=== PATIENT | female | born 1960 | race Caucasian/White ===

== ENCOUNTER 2019-07-19 09:33 | Outpatient (CLI) | payer OTHER, SELFPAY ==
--- NOTE | ~2019-07-19 | MM_ITS ---
EXAMINATION: MM screening [facility] BI w [place] HISTORY: Screening mammogram TECHNIQUE: Craniocaudal and mediolateral oblique 3-D tomosynthesis images were obtained and synthetic 2-D images were generated. CAD analysis was submitted and interpreted. COMPARISON: 04/09/2018, 01/30/2017, 01/20/2016 BREAST PARENCHYMAL COMPOSITION: There are scattered areas of fibroglandular density. FINDINGS: There is no evidence of suspicious mass, calcification, or architectural distortion to sugg est malignancy in either breast. There has been no suspicious interval change. IMPRESSION: 1. No mammographic evidence of malignancy. 2. Recommend routine screening mammography in one year. BI-RADS Category 1: Negative Reviewed, dictated and finalized at location A. GER CLIENT SUPPORT
== END 2019-07-19 09:34 | disposition home or self-care (01) ==
LOC: ANHIMG 09:35
PROVIDERS: Visit Provider Obstetrics & Gynecology
DX: Z12.31 Encounter for screening mammogram for malignant neoplasm of breast (principal)
CPT/HCPCS: 77063; 77067

== ENCOUNTER 2020-07-21 08:26 | Outpatient (CLI) | payer OTHER, SELFPAY ==
--- NOTE | ~2020-07-21 | MM_ITS ---
EXAMINATION: MM screening [facility] [place] HISTORY: Screening TECHNIQUE: Craniocaudal and mediolateral oblique 3-D tomosynthesis images were obtained and synthetic 2-D images were generated. CAD analysis was submitted and interpreted. COMPARISON: Comparison to multiple prior studies sequentially, with oldest reviewed study dated 12/16. BREAST PARENCHYMAL COMPOSITION: There are scattered areas of fibroglandular density. FINDINGS: There is no evidence of suspicious mass, calcification, or architectural distortion to sugg est malignancy in either breast. There has been no suspicious interval change. IMPRESSION: 1. No mammographic evidence of malignancy. 2. Recommend routine screening mammography in one year. BI-RADS Category 1: Negative Reviewed, dictated and finalized at location A. COMMUNICATIONS MANAGER
== END 2020-07-21 08:27 | disposition home or self-care (01) ==
LOC: ANHIMG 08:32
PROVIDERS: Visit Provider Obstetrics & Gynecology
DX: Z12.31 Encounter for screening mammogram for malignant neoplasm of breast (principal)
CPT/HCPCS: 77063; 77067

== ENCOUNTER 2021-08-24 07:48 | Outpatient (CLI) | payer OTHER, SELFPAY ==
--- NOTE | ~2021-08-24 | MM_ITS ---
EXAMINATION: MM screening [facility] [place] HISTORY: Screening TECHNIQUE: Craniocaudal and mediolateral oblique 3-D tomosynthesis images were obtained and synthetic 2-D images were generated. CAD analysis was submitted and interpreted. COMPARISON: Comparison to multiple prior studies sequentially, with oldest reviewed study dated 12/29. BREAST PARENCHYMAL COMPOSITION: The breasts are heterogeneously dense, which may obscure small masses . FINDINGS: There is no evidence of suspicious mass, calcification, or architectural distortion to sugg est malignancy in either breast. There has been no suspicious interval change. IMPRESSION: 1. No mammographic evidence of malignancy. 2. Recommend routine screening mammography in one year. BI-RADS Category 1: Negative Reviewed, dictated and finalized at location A.
== END 2021-08-24 07:49 | disposition home or self-care (01) ==
LOC: ANHIMG 07:50
PROVIDERS: Visit Provider Obstetrics & Gynecology
DX: Z12.31 Encounter for screening mammogram for malignant neoplasm of breast (principal)
CPT/HCPCS: 77063; 77067

== ENCOUNTER 2022-08-26 08:00 | Outpatient (CLI) | payer OTHER, SELFPAY ==
--- NOTE | ~2022-08-26 | MM_ITS ---
EXAMINATION: MM screening [facility] [place] HISTORY: Screening TECHNIQUE: Craniocaudal and mediolateral oblique 3-D tomosynthesis images were obtained and synthetic 2-D images were generated. CAD analysis was submitted and interpreted. COMPARISON: Comparison to multiple prior studies sequentially, with oldest reviewed study dated 08/2015. BREAST PARENCHYMAL COMPOSITION: There are scattered areas of fibroglandular density. FINDINGS: There is no evidence of suspicious mass, calcification, or architectural distortion to sugg est malignancy in either breast. There has been no suspicious interval change. IMPRESSION: 1. No mammographic evidence of malignancy. 2. Recommend routine screening mammography in one year. BI-RADS Category 1: Negative Reviewed, dictated and finalized at location A.
== END 2022-08-26 08:01 | disposition home or self-care (01) ==
PROVIDERS: Visit Provider Obstetrics & Gynecology
DX: Z12.31 Encounter for screening mammogram for malignant neoplasm of breast (principal)
CPT/HCPCS: 77063; 77067

== ENCOUNTER 2023-09-11 15:50 | Outpatient (CLI) | payer OTHER, SELFPAY ==
--- NOTE | ~2023-09-11 | MM_ITS ---
EXAMINATION: MM screening [facility] BI w [place] HISTORY: Screening TECHNIQUE: Craniocaudal and mediolateral oblique 3-D tomosynthesis images were obtained and synthetic 2-D images were generated. CAD analysis was submitted and interpreted. COMPARISON: Comparison to multiple prior studies sequentially, with oldest reviewed study dated 01/30. BREAST PARENCHYMAL COMPOSITION: Not dense: There are scattered areas of fibroglandular density. FINDINGS: There is no evidence of suspicious mass, calcification, or architectural distortion to sugg est malignancy in either breast. There has been no suspicious interval change. IMPRESSION: 1. No mammographic evidence of malignancy. 2. Recommend routine screening mammography in one year. BI-RADS Category 1: Negative Reviewed, dictated and finalized at location A.
== END 2023-09-11 15:51 | disposition home or self-care (01) ==
LOC: ANHIMG 15:51
PROVIDERS: Visit Provider Obstetrics & Gynecology
DX: Z12.31 Encounter for screening mammogram for malignant neoplasm of breast (principal)
CPT/HCPCS: 77063; 77067

== ENCOUNTER 2023-09-19 09:10 | Outpatient (CLI) | payer OTHER, SELFPAY ==
--- NOTE | ~2023-09-19 | US_ITS ---
EXAMINATION: US thyroid DATE: 09/19/2023 09:20 INDICATION: Nontoxic goiter TECHNIQUE: Multiple ultrasound images of the thyroid were obtained. COMPARISON: None. FINDINGS: The right thyroid lobe measures 4.6 x 2.3 x 2.1 cm. The left thyroid lobe measures 2.9 x 0.8 x 1.0 c m. There are couple nodules in the right thyroid lobe. Both are solid, wider than tall with lobular margins, iso to slightly hyperechoic relative to the surrounding thyroid and without echogenic foci ( TI-RADS 4, moderately suspicious , FNA if >=1.5 cm, annual followup is >=1 cm). The larger measures 1 .7 cm and the smaller 1.5 cm . There is heterogeneous decreased echogenicity with increased vascular flow throughout the remainder of the thyroid. IMPRESSION: 1. Couple TI RADS 4 right thyroid nodules. Recommend ultrasound-guided biopsy of the larger 1.7 cm no dule. Reviewed, dictated and finalized at location A. IMPRESSION: 1. Couple TI RADS 4 right thyroid nodules. Recommend ultrasound-guided biopsy o f the larger 1.7 cm nodule.
== END 2023-09-19 09:11 ==
PROVIDERS: Visit Provider Otolaryngology
DX: E03.9 Hypothyroidism, unspecified (principal); K21.9 Gastro-esophageal reflux disease without esophagitis; E04.2 Nontoxic multinodular goiter
CPT/HCPCS: 76536

== ENCOUNTER 2023-09-25 12:11 | Outpatient (CLI) | payer OTHER, SELFPAY ==
--- NOTE | ~2023-09-25 | US_ITS ---
EXAMINATION: US FNA w image guidance DATE: 09/25/2023 13:30 INDICATION: Thyroid nodule TECHNIQUE: A time-out was performed to verify the patient's name, date of , and procedure to be performed . The procedure and its benefits and risks were discussed with the patient. Risks specifically discus sed included bleeding and infection. The patient understood the risks and agreed to proceed. The neck was prepped and draped in the usual sterile manner. 3 mL 1% lidocaine was used for local anesthesia . 6 passes were made with a 25G needle into the lesion. Appropriate needle location was documented with continuous sonographic guidance. A sterile bandage was applied. There were no immediate compli cations. FINDINGS: Grayscale ultrasound images demonstrate biopsy needles advanced into the more cephalad of a pair of 1 .4 cm TI RADS 4 nodules. The biopsied nodules the mid thyroid lobe and the more caudal nodule at the inferior thyroid. Of note on cine imaging there are . To be some contiguity between the 2 nodules sug gesting this may represent a single 3.0 cm long lobular TI RADS 4 nodule. IMPRESSION: 1. Successful ultrasound-guided fine needle aspiration of a 1.4 cm TI RADS 4 nodule in the mid right thyroid which may represent a component of a single larger right thyroid mass comprising the identic al size and appearing nodule at the inferior right thyroid which was not biopsied. Reviewed, dictated and finalized at location A. IMPRESSION: 1. Successful ultrasound-guided fine needle aspiration of a 1.4 cm TI RADS 4 n odule in the mid right thyroid which may represent a component of a single larg er right thyroid mass comprising the identical size and appearing nodule at the inferior right thyroid which was not biopsied.
== END 2023-09-25 12:12 | disposition home or self-care (01) ==
PROVIDERS: Visit Provider Otolaryngology
DX: E07.9 Disorder of thyroid, unspecified (principal)
CPT/HCPCS: 10005; 88172; 88173; 88305

== ENCOUNTER 2023-12-29 11:51 | Day surgery (SDC) | payer OTHER, SELFPAY ==
[2023-12-18 08:34] VITALS: BMI 22.3
[2023-12-18 14:38] VITALS: BMI 22.5
--- NOTE | 2023-12-29 09:10 | PM.HPGS ---
History of Present Illness History of Present Illness Consent: Risks, benefits, and alternatives have been discussed and questions answered. Patient agrees to proceed with procedure. Chief complaint: Gerd w/o Esophagitis, Dyskinesia of Esophagus Narrative: Luna Reilly is a 63 year old female who's chief complaint is tightness upper esophageal sphincter with mild pain and frequent throat clearing. This patient has taking the famotidine 40 mg q.a.m. on empty stomach for the past 2 months and she says on occasion she will have good improvement but the frequent throat clearing and pain and tightness at the upper esophageal sphincter area continue to bother her almost daily. She is concerned that she might have a mass in her esophagus or throat and she is concerned that the frequent throat clearing would damage her vocal cords. Again, she had tried the omeprazole, proton pump inhibitor. and could not tolerate this because of stomach cramping and diarrhea. she denies dysphagia. She states that she simply always feels the need to clear her throat. Review of Systems Review of Systems: All systems reviewed & are unremarkable except as noted in HPI and below PMFSH Past Medical History Medical History Thyroid condition Family History Family History Father Heart disease Cerebrovascular accident Mother Thyroid disorder Multiple sclerosis Social History Social History Social History: Caffeine-soda Smoking status: Never smoker Alcohol intake: never Substance use: never Substance use type: does not use Do You Feel Safe in your Home?: Yes Lack of Transportation: No Lack of Food: Never True Current Housing: I Have Housing Concerned About Future Housing: No Difficulty Paying Gas/Electric Bills: No Difficulty Paying for Meds: No Currently Unemployed: No Education: High School Diploma/GED Difficulty w/ Childcare or Family Care: No Living arrangements: with family Spiritual care concerns: No Meds Home Medications and Allergies Home Medications Medication Instructions Recorded Confirmed Type levothyroxine 88 mcg capsule 88 mcg PO DAILY 09/18/23 12/29/23 History simvastatin 40 mg tablet 40 mg PO DAILY 09/18/23 12/29/23 History famotidine 20 mg tablet 40 mg PO DAILY 12/18/23 12/29/23 History Allergies Allergy/AdvReac Type Severity Reaction Status Date / Time morphine Allergy Severe ITCHING Verified 12/29/23 13:10 latex Allergy Unknown RASH Verified 12/29/23 13:10 Exam Const: General: alert Orientation/consciousness: patient oriented x3 Resp: Auscultation: clear to auscultation bilaterally Cardio: Rhythm: regular rhythm GI: GI Palp: Yes Soft to palpation and No Tenderness to palpation present (GI) Neuro: General: patient oriented x3 Assessment and Plan Assessment and plan (1) Esophageal spasm: Code(s): K22.4 - Dyskinesia of esophagus Status: Acute Assessment and Plan: EGD with possible biopsy or dilatation or cautery.
[2023-12-29 13:11] VITALS: BP 112/75; PULSE 59; RESP 16; TEMP 36.7; O2SAT 100
[2023-12-29] MEDS: LACTATED RINGERS 1,000 ML 150 ML IV CONT (13:16)
--- NOTE | 2023-12-29 13:30 | P.PNAN_ITS ---
Anes - Initial Pre Proc Eval Procedure: Operation Date: 12/29/23 14:30 Proposed Procedures p Esophagogastroduodenoscopy - Donald Yi MD Date/Time: 12/29/23 13:30 Surgeon: Donald Yi MD Pre Op Diagnosis: Gerd w/o Esophagitis, Dyskinesia of Esophagus Patient Data Age: 63 Gender: F Height: 1.65 m Weight: 60.5 kg Last Vital Signs Temp 36.7 C 12/29/23 13:11 Pulse 59 L 12/29/23 13:11 Resp 16 12/29/23 13:11 BP 112/75 12/29/23 13:11 Pulse Ox 100 12/29/23 13:11 O2 Del Method Room Air 12/29/23 13:11 Allergies Allergy/AdvReac Type Severity Reaction Status Date / Time morphine Allergy Severe ITCHING Verified 12/29/23 13:10 latex Allergy Unknown RASH Verified 12/29/23 13:10 Home Medications Medication Instructions Recorded Confirmed Type levothyroxine 88 mcg capsule 88 mcg PO DAILY 09/18/23 12/29/23 History simvastatin 40 mg tablet 40 mg PO DAILY 09/18/23 12/29/23 History famotidine 20 mg tablet 40 mg PO DAILY 12/18/23 12/29/23 History Patient hx anesthesia problems: none Family hx anesthesia problems: none Results Review: All pre-operative results and documents have been reviewed as part of the pre- operative evaluation. [facility]LY [facility] Past Medical History Medical History (Updated 12/29/23 @ 13:30 by Renato Nettles MD) Hyperlipidemia Thyroid condition Surgical History Surgical History (Updated 12/29/23 @ 13:31 by Renato Nettles MD) H/O: hysterectomy History of appendectomy Family History Family History Father Heart disease Cerebrovascular accident Mother Thyroid disorder Multiple sclerosis Social History Social History Social History: Caffeine-soda Smoking status: Never smoker Alcohol intake: never Substance use: never Substance use type: does not use Do You Feel Safe in your Home?: Yes Lack of Transportation: No Lack of Food: Never True Current Housing: I Have Housing Concerned About Future Housing: No Difficulty Paying Gas/Electric Bills: No Difficulty Paying for Meds: No Currently Unemployed: No Education: High School Diploma/GED Difficulty w/ Childcare or Family Care: No Living arrangements: with family Spiritual care concerns: No Anes - Eval Final PreProcedure Day of Procedure 12/29/23 13:30 Patient weight: normal Heart: regular rate and rhythm Lungs: clear to auscultation Airway: Mallampati scale class II Neurological: alert and oriented Last oral intake: >/= 8 hours ASA classification: II Emergent: no Anesthetic plan: proceed Anesthesia type and monitoring: general GIVS and standard monitoring Results Review: All pre-operative results and documents have been reviewed as part of the pre- operative evaluation. Informed Consent: The patient's anesthetic plan and its attendant risks and benefits were discussed with the patient/family/POA. Questions were solicited and answers provided to the satisfaction of the patient/family/POA.
[2023-12-29 13:44] VITALS: BP 102/56; PULSE 60; RESP 16; O2SAT 100
--- NOTE | 2023-12-29 13:52 | WPDANESPN ---
Anes - Prog Note Post-Op Date/Time: 12/29/23 13:52 Cardiovascular status: normal Respiratory status: normal Airway patency: baseline Mental status: baseline Vital Signs: Last Vital Signs Temp 36.7 C 12/29/23 13:11 Pulse 59 L 12/29/23 13:11 Resp 16 12/29/23 13:11 BP 112/75 12/29/23 13:11 Pulse Ox 100 12/29/23 13:11 O2 Del Method Room Air 12/29/23 13:11 Pain Score (VAS): 0/10 I/O: Intake & Output 12/28/23 12/29/23 12/29/23 23:59 07:59 15:59 Intake Total 300 Balance 300 Patient Feedback: Patient satisfied with anesthetic care.
[2023-12-29 13:54] VITALS: BP 99/60; PULSE 59; O2SAT 99
[2023-12-29 14:04] VITALS: BP 105/64; O2SAT 100
== END 2023-12-29 14:25 | disposition home or self-care (01) ==
PROVIDERS: Visit Provider Internal Medicine Gastroenterology
PROC: 0DJ08ZZ Inspection of Upper Intestinal Tract, Via Natural or Artificial Opening Endoscopic (ICD-10-PCS; CPT 43235; principal; 2023-12-29 14:30)
DX: K21.9 Gastro-esophageal reflux disease without esophagitis (principal); F45.8 Other somatoform disorders
CPT/HCPCS: 43239

== ENCOUNTER 2024-09-07 10:55 | Outpatient (CLI) | payer OTHER, SELFPAY ==
--- NOTE | ~2024-09-07 | US_ITS ---
EXAMINATION: US FNA w image guidance DATE: 09/07/2024 12:28 INDICATION: Thyroid nodule with suspicious prior fine-needle aspiration. TECHNIQUE: A time-out was performed to verify the patient's name, date of , and procedure to be performed . The procedure and its benefits and risks were discussed with the patient. Risks specifically discus sed included bleeding and infection. The patient understood the risks and agreed to proceed. The neck was prepped and draped in the usual sterile manner. 3 mL 1% lidocaine was used for local anesthesia . 8 passes were made with a 25G needle into the lesion. Appropriate needle location was documented with continuous sonographic guidance. A sterile bandage was applied. There were no immediate compli cations. FINDINGS: Grayscale ultrasound images demonstrate biopsy needles advanced into the cephalad and caudal componen ts of a bilobed solid isoechoic nodule with lobular margins (TI-RADS 4, moderately suspicious) in the right thyroid lobe. IMPRESSION: 1. Successful ultrasound-guided fine needle aspiration of the TI-RADS 4 right thyroid nodule of conc carlos. Reviewed, dictated and finalized at location A. IMPRESSION: 1. Successful ultrasound-guided fine needle aspiration of the TI-RADS 4 right thyroid nodule of concern.
--- OUTSIDE RECORDS SUMMARY | 2024-09-07 12:31 | XMS_ITS | Clinical Summary ---
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 Gender Identity Not on file Sexual Orientation Not on file Plan of Treatment Health Maintenance Due Date Last Done Comments DTAP/TDAP/TD VACCINES (1 - Tdap) 08/17/1979 HPV/Cotest (21-29) 1981 CERVICAL CANCER SCREENING 1990 HPV/Cotest (30-65) 1990 PAP SMEAR 1990 BREAST CANCER SCREENING 2000 COLORECTAL SCREENING 2005 Colorectal Cancer Screening 2005 FIT-DNA Q 3 years 2005 FIT/FOBT Q 1 year 2005 Flex Sig/CT Colonography Q 5 years 2005 ZOSTER VACCINE (2 of 2) 05/28/2022 04/02/2022 INFLUENZA VACCINE (#1) 2024 RSV VACCINE (60+ or ) (1 - 1-dose 75+ series) 08/17/2035 PNEUMOCOCCAL VACCINE 0-49 YEARS Aged Out No longer eligible based on patient's age to complete this topic Insurance QuVIS [id number]
--- OUTSIDE RECORDS SUMMARY | 2024-09-07 12:31 | XMS_ITS | Data Portability ---
Author Organization [facility], [address] [facility] ([place]) Address [address] 4th [place] [address] Care Team Providers Care Compliance Associate Name Role Phone MACARIO FISH Primary Care Provider [phone] Assessment Encounter Date Assessment Date Assessment LastModified by Organization Details LastModified Time 11/27/2023 11/27/2023 I discussed with Luna that there is no sign of infection of her toe. This blister is likely due to an injury. I recommend to keep the skin intact if she can. If blister does pop, cover with Neosporin and bandage. If it does not improve, pt will notify office. Pt verbalizes understanding of treatment plan. Not available 11/27/2023 17:14:06 09/02/2024 09/02/2024 Pt [facility] Simvastatin refilled x 90 days to last until after labs are complete then will be refilled x 1 year. Pt verbalizes understanding of treatment plan. Not available 09/02/2024 10:04:43 Plan of Treatment Reminders Order Date Submit Date Provider Last Modified By Organization Details Last Modified Time Details Appointments None recorded. Lab wet mount, vaginal 2023 024 [id number] 6 [facility], [address] [place] [address], [id number], 4 11:48:08 TSH, ultra-sensi tive, serum 2023 024 abillingt on2 [facility], [address] [place] [address], [id number], 11:27:04 CMP, serum or plasma 2023 024 rubént on2 [facility], [address] [place] [address], [id number], 11:26:41 Referral None recorded. Procedures None recorded. Surgeries None recorded. Imaging None recorded. Medication Orders simvastatin 40 mg tablet 2024 025 [facility] ([facility]), [address], [address], [place], [place], [id number], 09:59:42 Patient TargetsNo targets recorded. Patient Instructions Encounter Date Encounter Id Patient Instructions Last Modified By Organization Details Last Modified Time 05/24/2024 [id number] Follow-up as scheduled, PRN in interim [email or web address] Not available 05/24/2024 12:31:36 Reason for Referral None Reported. Results Created Date Observation Date Name Description Value Unit Range Abnormal Flag Note LastModifiedBy Organization Detail LastModifiedTime 05/27/2005/28/2024 carol da sp + gardn erell a vagin foreign + trich omona s vagin foreign DNA panel , probe , vagin al fluid wet prep-DNA probe Not Available [facility] [address] [place] [address], [id number], 05/28/2024 08:35:17 05/27/20 24 05/28/2024 carol da sp + gardn erell a vagin foreign + trich omona s vagin foreign DNA panel , probe , vagin al fluid bacterial vaginosis NEGATI VE negati ve Not Available [facility] [address] [place] [address], [id number], 05/28/2024 08:35:17 05/27/20 24 05/28/2024 carol da sp + gardn erell a vagin foreign + trich omona s vagin foreign DNA panel , probe , vagin al fluid katlyn krusei NEGATI VE negati ve A Carol da sp. (C. albic ans, C. tropi calis , C. parap humberto is, C. dubli niens is) resul t can be posit sarah due to one or multi ple Carol da speci es. This is a PCR assay that detec ts DNA targe ts to aid in the diagn osis of vagin al infec tions in women . A posit sarah resul t does not neces saril y indic ate the prese nce of viabl e organ isms and there fore can not be used to asses s thera peuti c succe ss. Not Available [facility] [address] [place] [address], [id number], 05/28/2024 08:35:17 05/27/20 24 05/28/2024 carol da sp + gardn erell a vagin foreign + trich omona s vagin foreign DNA panel , probe , vagin al fluid trichomonas NEGATI VE negati ve Not Available [facility] [address] [place] [address], [id number], 05/28/2024 08:35:17 05/27/20 24 05/28/2024 carol da sp + gardn erell a vagin foreign + trich omona s vagin foreign DNA panel , probe , vagin al fluid katlyn sp. NEGATI VE negati ve Not Available [facility] [address] [place] [address], [id number], 05/28/2024 08:35:17 05/27/20 24 05/28/2024 carol da sp + gardn erell a vagin foreign + trich omona s vagin foreign DNA panel , probe , vagin al fluid katlyn glabrata NEGATI VE negati ve Not Available [facility] [address] [place] [address], [id number], 05/28/2024 08:35:17 06/25/19 25 06/25/2024 TSH, ultra -sens itive , serum TSH3 1.968 uIU/m L .340-5 .600 Not Available [facility] [address] [place] [address], [id number], 06/25/2024 16:24:50 06/25/19 25 06/25/2024 CMP, serum or plasm a comp. met. panel Not Available [facility] [address] [place] [address], [id number], 06/25/2024 16:29:03 06/25/1906/25/2024 CMP, serum or plasm a sodium 138 mmol/ L 136-14 6 Not Available [facility] [address] [place] [address], [id number], 06/25/2024 16:29:03 06/25/1906/25/2024 CMP, serum or plasm a potassium 4.2 mmol/ L 3.5-5. 1 Not Available [facility] [address] [place] [address], [id number], 06/25/2024 16:29:03 06/25/19 25 06/25/2024 CMP, serum or plasm a chloride 102 mmol/ L 98-110 Not Available [facility] [address] [place] [address], [id number], 06/25/2024 16:29:03 06/25/1906/25/2024 CMP, serum or plasm a CO2 30 mEq/L 20-32 Not Available [facility] [address] [place] [address], 80189, 06/25/2024 16:29:03 06/25/1906/25/2024 CMP, serum or plasm a anion gap 10 mmol/ L 10-22 Not Available [facility] [address] [place] [address], 936[address], 06/25/2024 16:29:03 06/25/1906/25/2024 CMP, serum or plasm a glucose 90 mg/dL 70-100 Not Available [facility] [address] [place] [address], [id number], 06/25/2024 16:29:03 06/25/19 25 06/25/2024 CMP, serum or plasm a calcium 9.6 mg/dL 8.4-10 .4 Not Available [facility] [address] [place] [address], [id number], 06/25/2024 16:29:03 06/25/19 25 06/25/2024 CMP, serum or plasm a total protein 6.9 g/dL 6.4-8. 3 Not Available [facility] [address] [place] [address], [id number], 06/25/2024 16:29:03 06/25/1906/25/2024 CMP, serum or plasm a albumin 4.3 g/dL 3.5-5. 3 Not Available [facility] [address] [place] [address], [id number], 06/25/2024 16:29:03 06/25/19 25 06/25/2024 CMP, serum or plasm a ALP 74 U/L 44 - 127 Not Available [facility] [address] [place] [address], [id number], 06/25/2024 16:29:03 06/25/19 25 06/25/2024 CMP, serum or plasm a AST (SGOT) 30 U/L 10-40 Not Available [facility] [address] [place] [address], [id number], 06/25/2024 16:29:03 06/25/1906/25/2024 CMP, serum or plasm a total bilirubin 0.6 mg/dL 0.2-1. 0 Not Available [facility] [address] [place] [address], [id number], 06/25/2024 16:29:03 06/25/19 25 06/25/2024 CMP, serum or plasm a ALT (SGPT) 29 U/L 8-35 Not Available [facility] [address] [place] [address], [id number], 06/25/2024 16:29:03 06/25/19 25 06/25/2024 CMP, serum or plasm a BUN 22 mg/dL 7-21 high Not Available [facility] [address] [place] [address], 10919, 06/25/2024 16:29:03 06/25/19 25 06/25/2024 CMP, serum or plasm a creatinine 1.2 mg/dL 0.7-1. 3 Not Available [facility] [address] [place] [address], 09688, 06/25/2024 16:29:03 06/25/19 25 06/25/2024 CMP, serum or plasm a CKD-epi GFR 51 low eGFR was calcu lated using the 2020 CKD-E PI equat ion. (Academic Assistant phong Kidne y Disea se has an eGFR less than 60 mL/mi n/1.7 3mm for a perio d of three month s or more. ) This calcu latio n has not been valid ated for patie nt ages <18 or >90 years old. Not Available [facility] [address] [place] [address], [id number], 06/25/2024 16:29:03 01/15/20 24 06/17/2022 imagi ng/di agnos tic resul t No observ ation record ed. Not Available 01/15/2024 01:45:32 01/15/20 24 09/11/2022 imagi ng/di agnos tic resul t No observ ation record ed. Not Available 01/15/2024 01:45:36 01/15/2009/11/2022 imagi ng/di agnos tic resul t No observ ation record ed. Not Available 01/15/2024 01:45:40 01/15/2009/11/2022 imagi ng/di agnos tic resul t No observ ation record ed. Not Available 01/15/2024 01:45:41 01/15/2009/19/2022 imagi ng/di agnos tic resul t No observ ation record ed. Not Available 01/15/2024 01:45:49 02/17/2009/12/2022 imagi ng/di agnos tic resul t No observ ation record ed. Not Available 02/17/2024 01:15:54 03/30/2009/16/2023 imagi ng/di agnos tic resul t No observ ation record ed. [email or web address] Not Available 23:05:55 03/30/2009/16/2023 imagi ng/di agnos tic resul t No observ ation record ed. [email or web address] Not Available 23:05:56 03/30/2009/19/2023 imagi ng/di agnos tic resul t No observ ation record ed. [email or web address] Not Available 23:06:02 03/30/2009/19/2023 imagi ng/di agnos tic resul t No observ ation record ed. [email or web address] Not Available 23:06:03 03/30/2009/24/2023 imagi ng/di agnos tic resul t No observ ation record ed. [email or web address] Not Available 23:06:05 03/30/2009/24/2023 imagi ng/di agnos tic resul t No observ ation record ed. [email or web address] Not Available 23:06:05 Result Notes None recorded. Problems Name Problem SNOMED Code Status Onset Date Resolution Date Notes Provider Name and Address Organization Details Recorded Time Gastroes ophageal reflux disease 115780764 Active 202312/29/23 EGD at Ralf Crowley PA-C [address] [facility] [address], [place], [address], [facility] 4 17:49:11 Chronic kidney disease stage 3A 366109292 Active baseline creatini ne 1.0-1.2 since (eGFR 50's). Uncertai n etiology but notably followin g acute Covid infxn, consider referral to Nephrolo gy if worsenin g. Plan avoid nephroto xic agents as able. - note EGD w/ no e/o bleed (p BUN 20's). Macario Fish MD [address] [facility] [address], [place], [address], [facility] 5 08:22:58 Mitral valve regurgit ation 95829076 Active mild-mod erate on echo (on eval of prior seen pericard ial effusion ) w/ nmL overall LV motion and EF 55-60%. f/b Cardiolo gy. Consuelo Guan [facility] 4 20:26:54 Chronic sinusiti s 21282124 Active 07/11/23 Trial of Singulai r added Consuelo Guan [facility] 4 20:20:33 Screenin g for malignan t neoplasm of colon Active nmL colonosc opy . repeat due 10yrs Macario Fish MD [address] [facility], [place], [address], [facility] 5 08:16:48 Chronic constipa tion 645732115 Active Trial of Linzess started Consuelo Guan [facility] 4 20:21:51 History of SARS-CoV -2 24859397291 4275168 Active + home test 12/20/21 Consuelo Guan [facility] 4 20:22:31 Hyperlip idemia 58842293 Active Statin tx in kasiahoo ashly SCOTT Coronary calcium score low risk . Switched to rosuvast atin (from simvasta tin) p ODV600. - LDL 81 on Macario Fish MD [address], [place], [address], [facility] 5 08:23:26 Hypothyr oidism 62225342 Active Tx Levothyr oxine. TSH 1.97 on . Macario Fish MD [address] [facility], [place], [address], [facility] 5 08:23:49 Left lower quadrant pain 580565727 Completed 09/16/18 on & off for years. No LLQ findings on CT abd/pelv is. Spontane ously resolved (at check-in ). Macario Fish MD [address] [facility], [place], [address], [facility] 5 08:24:35 Multiple nodules of lung 198341256 Completed incident ally noted in lower lung ramirez on CT abd. Calcifie d granulom as on chest CT, no repeat imaging indicate d per rad's in 2019. Macario Fish MD [address] [facility], [place], [address], [facility] 5 08:25:17 Palpitat ions 53913671 Active Holter rare PACs and PVCs. As of 06/21/22 no further episodes during phone check in. Macario Fish MD [address] [facility], [place], [address], [facility] 5 08:28:21 Pericard ial effusion 467184776 Active mild, incident al on CT CalciumS coring . Resolved on echo . Macario Fish MD [address] [facility], [place], [address], [facility] 5 08:28:38 Cyst of kidney 840481486 Active Left on CT. s/p eval by Dr. Hackett, recommen ded f/u CT annually for a few years : stable thru . Right cyst stable . - urine cytology neg 07/2019. Macario Fish MD [address] , [place], [address], [facility] 5 08:31:12 Thyroid nodule 721212765 Active Bx R. thyroid nodule: suspici ous for malignan cy follicul ar cells with atypia, nucleoli & possible nuclear grooves. ENT (Dr. Escobar) planning repeat biopsy . Macario Fish MD [address] , [place], [address], [facility] 5 15:25:18 Screenin g mammogra phy Active Done through [facility] (Dr. Teresa correa) at [facility] ): nmL 07/21/20. [facility] 4 20:31:44 Vesicle of skin 222667137 Completed 11/27/2023 Blister of right great toe . Macario Fish MD [address] , [place], [address], [facility] 5 08:32:19 Problem Notes None recorded. Procedures Surgical History Date Name Laterality Status Provider Name and Address Organization Details Recorded Time [place] [facility] 20:17:55 [place] [facility] [place] 20:18:40 [place] [facility] 20:18:56 Imaging Results Imaging Date Name Status LastModified by Organiz ation Details LastModified Time 06/17/2022 imaging/diag nostic result completed j Information not available 01/15/2024 01:45:32 09/11/2022 imaging/diag nostic result completed j Information not available 01/15/2024 01:45:36 09/11/2022 imaging/diag nostic result completed j Information not available 01/15/2024 01:45:40 09/11/2022 imaging/diag nostic result completed Information not available 01/15/2024 01:45:41 09/19/2022 imaging/diag nostic result completed Information not available 01/15/2024 01:45:49 09/12/2022 imaging/diag nostic result completed Information not available 02/17/2024 01:15:54 09/16/2023 imaging/diag nostic result completed Information not available 03/30/2024 23:05:55 09/16/2023 imaging/diag nostic result completed Information not available 03/30/2024 23:05:56 09/19/2023 imaging/diag nostic result completed Information not available 03/30/2024 23:06:02 09/19/2023 imaging/diag nostic result completed Information not available 03/30/2024 23:06:03 09/24/2023 imaging/diag nostic result completed Information not available 03/30/2024 23:06:05 09/24/2023 imaging/diag nostic result completed Information not available 03/30/2024 23:06:05 Procedure Notes None recorded. Medical Equipment None Reported. Allergies Allergen ID Allergen Name Allergen Category Reaction Reaction Severity Criticality Documentation Date Start Date Code Code System Note Provider Name and Address Organization Details Recorded Time 2559877 rosuvasta tin medicatio n myalgias (muscle pain) Not available Not available 11/25/2023 44176 2 RxNorm Not Available Not Available Not Available 766761 morphine sulfate medicatio n rash Not available Not available 06/30/20232017 32586 RxNorm React ion: Rash; Itchi ng; Not Available Not Available Not Available Medications Name Sig Start Date Stop Date Status Note LastModified by Organization Details LastModified Time azithromy tal 250 mg tablet TAKE 2 TABLETS ON DAY 1 THEN TAKE 1 TABLET A DAY FOR 4 DAYS. 06/25 /2024 completed Not Available Not Available Not Available omeprazol e 40 mg capsule,d elayed release TAKE 1 TABLET BY MOUTH EVERY DAY 11/24 completed Not Available Not Available Not Available simvastat in 40 mg tablet Take 1 tablet every day by oral route. 2024 active Last prescrib ed 4 Not Available Not Available Not Available levothyro xine 88 mcg tablet Take 1 tablet every day by oral route. 2024 active Last prescrib ed 4 Not Available Not Available Not Available famotidin e 20 mg tablet TAKE 2 TABLETS BY MOUTH EVERY MORNING ON EMPTY STOMACH 11/24 completed Not Available Not Available Not Available monteluka st 10 mg tablet Take 1 tablet every day by oral route. 09/02 completed Last prescrib ed 07/11/2023 Not Available Not Available Not Available fluticaso ne propionat e 50 mcg/actua tion nasal spray,myah pension Instill two sprays IN EACH NOSTRIL EVERY DAY active Not Available Not Available No t Available rosuvasta tin 20 mg tablet TAKE 1 TABLET BY MOUTH EVERY DAY 11/24 completed Not Available Not Available Not Available omeprazol e Take 2 tablets daily active Not Available Not Available No t Available Linzess 72 mcg capsule TAKE 1 CAPSULE at least 30 minutes before the first meal of the day on an empty STOMACH 11/24 completed Not Available Not Available Not Available Vitals Date Recorded Body height Body mass index (BMI) Body weight Body temperature Heart rate Oxygen saturation Oxygen saturation in Arterial blood by Pulse oximetry Systolic blood pressure Diastolic blood pressure Provider Name and Address Organization Details Last Updated DateTime 4 165.1 cm 22.5 kg/m2 13297.3 7 g 96.8 [degF] 73 /min 97 % 97 % 124 mm[Hg] 74 mm[Hg] [facility] 4 15:49:47 Date Recorded Body height Body mass index (BMI) Body weight Body temperature Heart rate Oxygen saturation Oxygen saturation in Arterial blood by Pulse oximetry Systolic blood pressure Diastolic blood pressure Provider Name and Address Organization Details Last Updated DateTime 4 165.1 cm 23.4 kg/m2 04249.8 1 g 97.2 [degF] 68 /min 98 % 98 % 120 mm[Hg] 70 mm[Hg] Fanta Arvizuivonesuleman n [facility] 4 11:33:42 Date Recorded Body height Body mass index (BMI) Body weight Body temperature Heart rate Oxygen saturation Oxygen saturation in Arterial blood by Pulse oximetry Systolic blood pressure Diastolic blood pressure Provider Name and Address Organization Details Last Updated DateTime 5 165.1 cm 24.2 kg/m2 06411.3 3 g 96.3 [degF] 63 /min 98 % 98 % 118 mm[Hg] 72 mm[Hg] [facility] 09:[facility]32 Social History None recorded. Functional Status None recorded. Mental Status None recorded. Family History Relationship Description Onset Age of this Age Resolved Age Notes LastModified by Organization Details LastModified Time Father Cerebrovascu lar accident cschaake Not available 20:19:16 Mother Multiple sclerosis cschaake Not available 2023 20:19:32 Medical History No medical history recorded. Gynecological HistoryNo gynecological history recorded. Obstetrics History GPAL:G 0 P 0 0 0 0 Immunizations Vaccine Type Date Status Note Provider Nam e and Address Organization Details Recorded Time Influenza, recombinant, trivalent, PF 4 completed Fantaariane Taveras [facility] 05/24/2024 11:34:09 Influenza, MDCK, quadrivalent, PF 1 completed [facility] Copple [facility] 11/27/2023 15:50:32 Influenza, recombinant, quadrivalent, PF 3 completed [facility]/27[facility]23 15:50:32 zoster recombinant 3 completed Shena Copple [facility] 11/27/2023 15:50:32 zoster recombinant 2 completed Shena Copple [facility] 11/27/2023 15:50:32 COVID-19, mRNA, LNP-S, PF, 30 mcg/0.3 mL dose 1 completed [facility] 11/27/2023 15:50:32 COVID-19, mRNA, LNP-S, PF, 30 mcg/0.3 mL dose 1 completed [facility] 11/27/2023 15:50:32 COVID-19, mRNA, LNP-S, PF, 30 mcg/0.3 mL dose 1 completed [facility] 11/27/2023 15:50:32 COVID-19, mRNA, LNP-S, PF, 30 mcg/0.3 mL dose, essence-sucrose 2 completed [facility] 11/27/2023 15:50:32 COVID-19, mRNA, LNP-S, bivalent, PF, 30 mcg/0.3 mL dose 2 completed Shena Copple [facility] 11/27/2023 15:50:32 COVID-19, mRNA, LNP-S, PF, essence-sucrose, 30 mcg/0.3 mL 3 completed Shena Copple [facility] 11/27/2023 15:50:32 Tdap 8 completed Shena Copple [facility] 11/27/2023 15:50:32 Influenza, split virus, trivalent, preservative 5 completed [facility] 11/27/2023 15:50:32 Influenza, split virus, trivalent, PF 7 completed [facility] 11/27/2023 15:50:32 Influenza, split virus, quadrivalent, PF 2 completed [facility] 11/27/2023 15:50:32 Influenza, split virus, quadrivalent, PF 8 completed [facility] 11/27/2023 15:50:32 Influenza, split virus, quadrivalent, PF 0 completed [facility], [facility] 11/27/2023 15:50:32 Influenza, split virus, quadrivalent, PF 6 completed [facility] 11/27/2023 15:50:32 Influenza, split virus, quadrivalent, PF 9 completed [facility] 11/27/2023 15:50:32 Past Encounters Encounter ID Performer Location Encounter Start Date Encounter Closed Date Diagnosis/Indication Diagnosis SNOMED-CT Code Diagnosis ICD10 Code Diagnosis Note [id number] Macario Fish MD [facility] ([place]) [address] [place] [address] 11/27/2023 15:42:45 11/27/2023 16:35:59 Hyperlipidemia 45781346 E78.5 Hypothyroidism 14614531 E03.9 Vesicle of skin 74852186 5 R23.8 [id number] ROMULO LOPEZ MD [facility] ([place]) [address] [place] [address] 05/24/2024 11:26:19 05/24/2024 11:55:16 Vaginal discharge 493364023 N89.8 Having vaginal discharge which is improving, given the upcoming holiday and closure, will have patient self swab with wet prep to make sure we are not missing BV/yeast infection. Upper resp iratory tract finding 496960736 R09.89 Hoarse voice and some mild congestion present for a couple days- otherwise feels fine. Discussed supportive care at home with benadryl, mucinex, neti pot (with distilled/ bottled water). Aware to return if >10 days with purulent discharge and sinus tenderness - will treat for bacterial sinusitis at that time. Pt verbalized understand ing of plan. [id number] Macario Fish MD [facility] ([place]) [address] [place] [address] 09/02/2024 09:37:39 09/02/2024 09:59:37 Hyperlipidemia 60896753 E78.5 Statin tx in adulthood. FYI Coronary calcium score low risk . Switched to rosuvastat in (from torey velazquez) p KAB970.- LDL 81 on Hypothyroidism 08079773 E03.9 Tx Levothyrox ine. TSH 1.97 on . Health Concerns Section Related Observation LastModified by Organization Detai ls LastModified Time None Recorded Concern Status LastModified by Organization Details LastModified Time None Recorded Advance Directives Directive None Recorded Payers Encounter Date Sequence Insurance Name Policy Number Policy [place] Covered Member ID [place] Member ID Guarantor Name 11/27/2023 1 [facility] [id number] Luna Allen Schluckebier [id number] Luna Allen Schluckebier 05/24/2024 1 [facility] [id number] Luna Allen Schluckebier [id number] Luna Allen Schluckebier 09/02/[address] [place] [address] [id number] Luna Allen Schluckebier [id number] Luna Allen Schluckebier Notes Date Note Type Note Provider Name and Address Organization Details Recorded Time 11/27/2023 text/html Luna presents today with complaint of blister on right great toe-present x 1 week-no known injury-blister seems to be getting bigger-no pain-blister is still intact Raiza Crowley PA-C [address] [place] [address], [phone], [facility] 11/28/2023 09:03:28 05/24/2024 text/html 1) Vaginal discharge- better today- no pain; no bleeding; no foul smell- no itching, is yellow in color/clumpy but improving today- no concern for STIs per patient 2) No voice starting yesterday- feels fine, no fever, no cough, no sore throat, no dyspnea, no chest pain- sinus drainage, some ear congestion- has just been using benadryl to help ROMULO LOPEZ MD [address] [place] [address], [id number], [facility] 05/27/2024 10:06:57 09/02/2024 text/html Hypothyroidism-l ast TSH -takes Levothyroxine daily-feels that medication is working well Hyperlipidemia-last lipids -pt takes Simvastatin daily-denies muscle/joint pain associated with statin-will go to [facility] in October at [facility] Pt goes to gyne for pap/mammo CARRIE BermudezC [address] [facility] [address], [place], [address], [facility] 09/03/2024 09:20:28 OBGyn Episode No OBEpisode recorded.
--- OUTSIDE RECORDS SUMMARY | 2024-09-07 12:31 | XMS_ITS | Clinical Summary ---
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 Gender Identity Not on file Sexual Orientation Not on file Plan of Treatment Health Maintenance Due Date Last Done Comments Hepatitis C Virus (HCV) Screening 1960 Colonoscopy 2005 Colorectal Cancer Screening 2005 Cologuard 2010 Immunochemical Fecal Occult Blood 2010 Pneumococcal Immunization (50+ years) (1 of 1 - PCV) 2010 Zoster Immunization (1 of 2) 2010 Influenza Immunization (#1) 02/01/202403/04, 03/27/2020, 04/22/2019, Additional history exists SARS-COV-2 Immunization ( season) 2024 03/31/2021, 08/10/2020, 07/20/2020 Respiratory Syncytial Virus (RSV) Immunization (Adult) (1 - 1-dose 75+ series) 08/17/2035 DTaP/Tdap/Td Immunization Discontinued 03/27/2018 TdaP Immunization Completed 03/27/2018 Hepatitis B Immunization Aged Out No longer eligible based on patient's age to complete this topic Meningococcal Immunization (ACWY) Aged Out No longer eligible based on patient's age to complete this topic Rotavirus Immunization Aged Out No lo nger eligible based on patient's age to complete this topic Care Teams Manager Loss Prevention Relationship Specialty Start Date End Date Macario Lockett MD [address] [place] [address] PCP - General Family Medicine 07/30/21
--- OUTSIDE RECORDS SUMMARY | 2024-09-07 12:31 | XMS_ITS | Clinical Summary ---
Author Organization [facility] Address [facility] [place] [address] Care Team Providers Care Extension Clerk Name Role Phone Stevie Lockett MD Primary Care Provider Unavailab le Immunizations Name Administration Dates Next Due Influenza Adult (Generic) 03/26/2022 PFIZER COVID-19 (ORIGINAL FO RMULATION, PURPLE CAP) mRNA, LNP-S, PF, 30 MCG/0.3 ML DOSE 03/26/2022 Shingrix 04/02/2022 Social History Tobacco Use Types Packs/Day Years Used Date Smoking Tobacco: Never Assessed Comments Unknown Sex and Gender Information Value Date Recorded Sex Assigned at Not on file Legal Sex Female 6:37 PM GUIDANCE CONSULTANT Gender Identity Female 09/16/2023 1:17 PM CDT Sexual Orientation Not on file Last Filed Vital Signs Vital Sign Reading Time Taken Comments Blood Pressure 110/62 06/20/2017 9:35 AM GUIDANCE CONSULTANT Pulse 80 06/20/2017 9:35 AM GUIDANCE CONSULTANT Temperature - - Respiratory Rate - - Oxygen Saturation - - Inhaled Oxygen Concentration - - Weight 63.1 kg (139 lb) 06/20/2017 9:35 AM GUIDANCE CONSULTANT Height 165.1 cm (5' 5 ) 10/10/2015 10:36 AM CDT Body Mass Index 23.13 10/10/2015 10:36 AM CDT Plan of Treatment Health Maintenance Due Date Last Done Comments Cervical Cancer Screening Pap Smear (Age 30 to 64) Every 3 Years 1960 Colorectal Cancer Screening Colonoscopy (10 Years) 1960 Annual Physical 08/17/1963 Hepatitis C 1978 Cervical Cancer Screening Pap with HPV Testing (Age 30 to 64) Every 5 Years 1990 Cervical Cancer Screening with HPV 1990 Mammogram Screening 2000 COVID-19 Vaccine ( season) 2024 03/31/2023, 03/26/2022, 11/27/2021, Additional history exists DTaP, Tdap and Td Vaccines (2 - Td or Tdap) 03/27/2028 03/27/2018 RSV Immunization or 60+ Years (1 - 1-dose 75+ series) 08/17/2035 Zoster Vaccines Completed 06/25/2022, 04/02/2022 Meningococcal B Vaccine Aged Out No l onger eligible based on patient's age to complete this topic Meningococcal Vaccine Aged Out No tiera tesha eligible based on patient's age to complete this topic Pneumococcal Vaccine: Pediatrics (0 to 5 Years) and At-Risk Patients (6 to 64 Years) Aged Out No longer eligible based on patient's age to complete this topic RSV Immunizations Under 20 Months Aged Out No longer eligible based on patient's age to complete this topic Insurance Care Teams Extension Clerk Relationship Specialty Start Date End Date Stevie Lockett MD PCP - General FAMILY PRACTICE 07/20/19
== END 2024-09-07 10:56 | disposition home or self-care (01) ==
PROVIDERS: Visit Provider Otolaryngology
DX: E07.9 Disorder of thyroid, unspecified (principal)
CPT/HCPCS: 10005; 88172; 88173; 88305

== ENCOUNTER 2024-09-13 07:52 | Outpatient (CLI) | payer OTHER, SELFPAY ==
--- NOTE | ~2024-09-13 | MM_ITS ---
EXAMINATION: MM screening cornelio BI w catarina HISTORY: Screening TECHNIQUE: Craniocaudal and mediolateral oblique 3-D tomosynthesis images were obtained and synthetic 2-D images were generated. CAD analysis was submitted and interpreted. COMPARISON: Comparison to multiple prior studies sequentially, with oldest reviewed study dated 06/2017. BREAST PARENCHYMAL COMPOSITION: Not dense: There are scattered areas of fibroglandular density. FINDINGS: There is no evidence of suspicious mass, calcification, or architectural distortion to sugg est malignancy in either breast. There has been no suspicious interval change. IMPRESSION: 1. No mammographic evidence of malignancy. 2. Recommend routine screening mammography in one year. BI-RADS Category 1: Negative Reviewed, dictated and finalized at location []
--- OUTSIDE RECORDS SUMMARY | 2024-09-13 07:56 | XMS_ITS | Clinical Summary ---
Author Organization [facility] Address [address] [place] [address] Phone Care Team Providers Care Manager Emergency Department Name Role Phone Macario Lockett MD Primary Care Provider [phone] Social History Tobacco Use Types Packs/Day Years Used Date Smoking Tobacco: Never Assessed Comments Unknown Sex and Gender Information Value Date Recorded Sex Assigned at Not on file Legal Sex Female 11:47 AM TOP IRONER Gender Identity Not on file Sexual Orientation [...] to complete this topic Care Teams Manager Emergency Department Relationship Specialty Start Date End Date Macario Lockett MD [address] [place] [address] PCP - General Family Medicine 07/30/21
--- OUTSIDE RECORDS SUMMARY | 2024-09-13 07:56 | XMS_ITS | Clinical Summary ---
Author Organization [facility] Address [facility] [place] [address] Care Team Providers Care Real Estate Sales Manager Name Role Phone Stevie Lockett MD Primary Care Provider Unavailab le Immunizations Immunization Administration Dates Next Due Influenza Adult (Generic) 03/26/2022 PFIZER COVID-19 (ORIGINAL FO RMULATION, PURPLE CAP) mRNA, LNP-S, PF, 30 MCG/0.3 ML DOSE 03/26/2022 Shingrix 04/02/2022 Social History Tobacco Use Types Packs/Day Years Used Date Smoking Tobacco: Never Assessed Comments Unknown Sex and Gender Information Value Date Recorded Sex Assigned at Not on file Legal Sex Female 6:37 PM FINANCE CLERK Gender Identity Female 09/16/2023 1:17 PM CDT Sexual Orientation Not on file Last Filed Vital Signs Vital Sign Reading Time Taken Comments Blood Pressure 110/62 06/20/2017 9:35 AM FINANCE CLERK Pulse 80 06/20/2017 9:35 AM FINANCE CLERK Temperature - - Respiratory Rate - - Oxygen Saturation - - Inhaled Oxygen Concentration - - Weight 63.1 kg (139 lb) 06/20/2017 9:35 AM FINANCE CLERK Height 165.1 cm (5' 5 ) 10/10/2015 [...] 5 Years) and At-Risk Patients (6 to 49 Years) Aged Out No longer eligible based on patient's age to complete this topic RSV Immunizations Under 20 Months Aged Out No longer eligible based on patient's age to complete this topic Insurance Care Teams Real Estate Sales Manager Relationship Specialty Start Date End Date Stevie Lockett MD PCP - General FAMILY PRACTICE 07/20/19
--- OUTSIDE RECORDS SUMMARY | 2024-09-13 07:56 | XMS_ITS | Clinical Summary ---
Author Organization [facility] Address [address] [facility] [address] [place] [address] Phone Care Team Providers Care Hand I Tube Bender Name Role Phone Unavailable Primary Care Provider Unavailabl e Social History Tobacco Use Types Packs/Day Years Used Date Smoking Tobacco: Never Assessed Comments Unknown Sex and Gender Information Value Date Recorded Sex Assigned at Not on file Legal Sex Female 6:43 PM BAR STAFF Gender Identity Not on file Sexual Orientation [...] ) (1 - 1-dose 75+ series) 08/17/2035 Insurance [employer] [id number] Member Subscriber Plan / Payer (Ef fective 2022-Present) Name:Luna Reilly Relation to Subscriber:Self Name:Luna Reilly Payer ID:[id number] (NAIC) Type:HMO Address: [facility] [id number] [place] [id number]
== END 2024-09-13 07:53 | disposition home or self-care (01) ==
LOC: ANHIMG 07:53
PROVIDERS: Visit Provider Obstetrics & Gynecology
DX: Z12.31 Encounter for screening mammogram for malignant neoplasm of breast (principal)
CPT/HCPCS: 77063; 77067